=== PATIENT | female | born 1995 | race African-American/Black ===

== ENCOUNTER 2016-11-08 13:48 | Inpatient (IN) ==
[2016-11-08] MEDS ORDERED: BUTORPHANOL 2 MG/ML VIAL IV PRN (14:10)
[2016-11-08] MEDS ORDERED: ONDANSETRON 4 MG/2 ML VIAL IV PRN (14:10)
[2016-11-08] MEDS ORDERED: MEPERIDINE 50 MG/1 ML VIAL IV PRN (14:10)
[2016-11-08] MEDS ORDERED: LACTATED RINGERS 1,000 ML IV ONE (14:13)
[2016-11-08] MEDS ORDERED: hydrOXYzine HCL 25 MG/1 ML VIAL IM PRN (14:13)
[2016-11-08] MEDS ORDERED: ePHEDrine 50 MG/ML AMP IV PRN (14:13)
[2016-11-08] MEDS ORDERED: PROMETHAZINE 25 MG/1 ML VIAL IM ONE (14:13)
[2016-11-08] MEDS ORDERED: FAMOTIDINE 20 MG/2 ML VIAL IV ONE (14:13)
[2016-11-08] MEDS ORDERED: diphenhydrAMINE 50 MG/1 ML VIAL IV PRN ×2 (14:13)
[2016-11-08] MEDS ORDERED: ONDANSETRON 4 MG/2 ML VIAL IV ONE (14:13)
[2016-11-08] MEDS ORDERED: CITRIC ACID/SODIUM CITRATE 30 ML UDCUP PO ONE (14:13)
[2016-11-08] MEDS ORDERED: fentaNYL 2 MCG/ROPIV 0.2% EPID 150 ML EPIDURAL SCH (14:30)
[2016-11-08] MEDS ORDERED: LACTATED RINGERS 1,000 ML IV SCH (14:30)
[2016-11-08 14:52] LABS: Alanine Aminotransferase 24 U/L (13-56); Albumin 2.6 G/DL (3.4-5.0); Alkaline Phosphatase 230 U/L (45-117); Aspartate Amino Transferase 15 U/L (0-37); Bilirubin,Total < 0.39 MG/DL (0.2-1.0); Blood Urea Nitrogen 10 MG/DL (7-18); Calcium 9.1 MG/DL (8.5-10.1); Glucose 123 MG/DL (74-106); Potassium 3.7 MMOL/L (3.5-5.1); Sodium 136 MMOL/L (136-145); Total Protein 7.7 G/DL (6.4-8.3)
[2016-11-08 14:57] LABS: Basophils % 0.2 % (0.0-0.8); Eosinophils % 0.5 % (0.00-10.9); Hematocrit 39.6 VOL% (35.7-47.0); Hemoglobin 13.8 GM/DL (12.0-16.0); Immature Granulocytes % 0.5 %; Immature Granulocytes Absolute 0.04 #; Lymphocytes # 1.9 10*3/uL (1.4-4.0); Lymphocytes % 23.3 % (21.3-54.2); Mean Corpuscular HGB Conc 34.8 GM/DL (32-36); Mean Corpuscular Hemoglobin 30 PG (27-34); Mean Corpuscular Volume 86.5 FL (87-102); Mean Platelet Volume 13.9 FL (9.6-12.0); Monocytes # 0.4 10*3/uL (0.11-0.8); Monocytes % 5.4 % (1.7-12.7); Neutrophils # 5.7 10*3/uL (1.4-7.4); Neutrophils % 70.1 % (38.7-73.9); Platelet Count 246 T/CUMM (130-400); Red Blood Count 4.58 MC/CUMM (3.8-5.5); Red Cell Distribution Width 14.3 % (9.3-17.3); White Blood Count 8.2 T/CUMM (4-12)
[2016-11-08 15:04] LABS: INR 0.9; PT Patient Result 9.7 SECS; Partial Thromboplastin Time 28.7 SECS (0-40)
[2016-11-08] MEDS: OXYTOCIN/LR 20 UNIT/1,000 ML BAG IV SCH (15:14)
[2016-11-08 16:24] LABS: Apearance,Urine Slightly Hazy (Clear); Bacteria,Urine Few /HPF (Few); Bilirubin,Urine Negative (Negative); Blood, Urine Negative (Negative); Glucose,Urine (UA) Negative (Negative); Ketones,Urine Negative (Negative); Mucus,Urine Few /LPF (Occasional); Nitrite,Urine Negative (Negative); Protein,Urine Negative; RBC,Urine 1 /HPF (0-4); Squamous Epithelial Cell,Urine Occasional /HPF (0-10); Urine Color Yellow (Yellow); Urine Specific Gravity 1.012 (1.001-1.035); Urine Urobilinogen < 2.0 EU/DL (0.2-1.0); WBC,Urine 13 /HPF (0-6)
--- NOTE | 2016-11-08 18:58 | OB/GYN History & Physical ---
History of Present Illness Chief complaint: IOL History of present illness: Ms. Soto is a 20 year old female at 36 2/7 wks who was seen for f/u visit with Dr. Alma Rosa SERRANO in [place] today. Growth showed <1%. Per her recommendation admit for IOL. testing initiated secondary to AC lag and possible disorder. Pt also diagnosed with GDM, currently doing a good job with diet control. No other medical or surgical history. R/B/A to IOL reviewed. Pt verbalized understanding and willing to proceed. 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 Regular contractions. Prior to AROM 5-6/90/0. 5 minutes post AROM (clear) 6-7/+1) Assessment and Plan (1) 36 weeks gestation of Status: Acute Current Visit: Yes (2) IUGR (intrauterine growth restriction) affecting care of mother Status: Acute Assessment and plan: IOL Anticipate Per MAGGIE, possible disorder though nothing definitively visualized on u/s Current Visit: Yes Results - Labs CBC & BMP: 11/08/16 14:18 11/08/16 14:18
--- NOTE | 2016-11-08 19:31 | Event Note ---
DELIVERY NOTE of female in ANGELA position after IOL. Pt 5 cm at AROM, delivered ~ 15 minutes later. 4 lbs 7 oz. 8/9 APGARS. Spontaneous intact placenta. EBL 300 cc. Hemostatic left periurethral. NICU present. Mom and baby well.
[2016-11-08] MEDS ORDERED: MAGNESIUM SULF RIDER 100 ML IV ONE (19:57)
[2016-11-08] MEDS ORDERED: MAGNESIUM SULF DRIP 40 GM/1,000 ML ML IV SCH (20:45)
[2016-11-09] MEDS: OXYTOCIN/LR 20 UNIT/1,000 ML BAG IV SCH (01:06)
[2016-11-09] MEDS ORDERED: DIPH/TET/ACEL PERT BOOSTER VACCINE 0.5 ML VIAL IM ONE (01:46)
[2016-11-09] MEDS ORDERED: RHO(D) IMMUNE GLOBULIN 300 MCG SYRINGE IM ONE (01:46)
[2016-11-09] MEDS ORDERED: WITCH HAZEL PADS 100/JAR TOP PRN (01:46)
[2016-11-09] MEDS ORDERED: HYDROCORTISONE 2.5% RECTAL CREAM 30 GM TUBE TOP PRN (01:46)
[2016-11-09] MEDS ORDERED: ACETAMINOPHEN 325 MG TABLET PO PRN (01:46)
[2016-11-09] MEDS ORDERED: IBUPROFEN 800 MG TABLET PO PRN (01:46)
[2016-11-09] MEDS ORDERED: MAGNESIUM SULF DRIP 40 GM/1,000 ML ML IV SCH (01:46)
[2016-11-09] MEDS ORDERED: BISACODYL 10 MG SUPP RECTAL PRN (01:46)
[2016-11-09] MEDS ORDERED: MEASLES/MUMPS/RUBELLA VACCINE 0.5 ML VIAL SUBCUT ONE (01:46)
[2016-11-09] MEDS ORDERED: BENZOCAINE 20%/MENTHOL 0.5% SPRAY 56 GM CAN TOP PRN (01:46)
[2016-11-09] MEDS ORDERED: LANOLIN 50% CREAM 0.3 OZ TUBE TOP PRN (01:46)
[2016-11-09 05:22] LABS: Basophils % 0.2 % (0.0-0.8); Eosinophils % 0.1 % (0.00-10.9); Hematocrit 39.6 VOL% (35.7-47.0); Hemoglobin 14.1 GM/DL (12.0-16.0); Immature Granulocytes % 0.3 %; Immature Granulocytes Absolute 0.04 #; Lymphocytes # 1.8 10*3/uL (1.4-4.0); Lymphocytes % 14.3 % (21.3-54.2); Mean Corpuscular HGB Conc 35.6 GM/DL (32-36); Mean Corpuscular Hemoglobin 30 PG (27-34); Mean Corpuscular Volume 84.8 FL (87-102); Mean Platelet Volume 12.6 FL (9.6-12.0); Monocytes # 1.1 10*3/uL (0.11-0.8); Monocytes % 8.3 % (1.7-12.7); Neutrophils # 9.7 10*3/uL (1.4-7.4); Neutrophils % 76.8 % (38.7-73.9); Platelet Count 226 T/CUMM (130-400); Red Blood Count 4.67 MC/CUMM (3.8-5.5); Red Cell Distribution Width 14.2 % (9.3-17.3); White Blood Count 12.6 T/CUMM (4-12)
[2016-11-09 05:44] LABS: Albumin 2.5 G/DL (3.4-5.0); Bilirubin,Total 0.4 MG/DL (0.2-1.0); Osmolality,Calculated 265.1 MOS/KG (273-304); Potassium 4.1 MMOL/L (3.5-5.1); Total Protein 7.2 G/DL (6.4-8.3); Uric Acid 4.8 MG/DL (2.6-6.0)
--- NOTE | 2016-11-09 08:18 | OB/GYN Progress Note ---
Assessment and Plan (1) 36 weeks gestation of Status: Acute Current Visit: Yes (2) IUGR (intrauterine growth restriction) affecting care of mother Status: Acute Assessment and plan: IOL Anticipate Per MFM, possible disorder though nothing definitively visualized on u/s Current Visit: Yes (3) (normal spontaneous vaginal delivery) Status: Acute Assessment and plan: 1. Doing Ok 2. 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 Absent: tenderness Results - Labs CBC & BMP: 11/09/16 05:15 11/09/16 05:15
[2016-11-09] MEDS: DOCUSATE SODIUM 100 MG CAPSULE PO SCH (22:18)
[2016-11-10 07:47] VITALS: BP 126/84
--- NOTE | 2016-11-10 08:19 | Discharge Summary ---
Hospital Course - Hospital Course Hospital Course: Pt received PP magnesium therapy. Did well. BP still elevated yesterday morning. Pt given a dose of Procardia and BPs have been good. Today she feels good. No complaints Diagnosis - Discharge Diagnosis (1) 36 weeks gestation of Status: Acute (2) IUGR (intrauterine growth restriction) affecting care of mother Status: Acute (3) (normal spontaneous vaginal delivery) Status: Acute Discharge Plan - Discharge Data Disposition: Disch To Home/Self Care Condition at Discharge: Stable Discharge Diet: advance to your usual diet Activity: other (routine pp) Hygiene: may shower Weight Bearing at Discharge: full weight bearing Driving: no restrictions Contact your physician if you experience:: fever over 101, Difficulty voiding, Redness or swelling - Discharge Medications New Docusate Sodium Cap [Colace Cap] 100 mg PO BID #20 capsule Ibuprofen Tab [Motrin Tab] 800 mg PO Q6H PRN #20 tablet PRN Reason: Pain Moderate (4-7) No Action No122/Iron/Folic Acid [ Multi Tablet] 1 tablet PO DAILY - Follow Up or Referral - Forms/Instructions Exam - Constitutional Vitals: Period Temp Pulse Resp BP Sys/Mcginnis Pulse Ox Last 24 Hr 97.1 F-98.4 F 61-108 12-20 101-144/58-90 98-100 General appearance: no acute distress - Head Head exam: Present: normal inspection, normocephalic - Eye Eye exam: Present: EOMI Pupils: Present: KETURAH - GI/Abdominal GI/Abdominal exam: Present: soft. Absent: tenderness Discharge Results Procedures and tests throughout hospitalization: Pending Orders 11/08/16 Urine Culture Routine Labs on day of discharge: Preliminary micro results at discharge 11/08/16 Unknown Urine Culture - Preliminary Urine,Voided No Growth at 24 hours. DS: Provider Date of admission: 11/08/16 14:10 Primary care physician: . No PCP Attending physician on admission: Destiny Lanza MD Consults: 11/09/16 01:46 Consult to Patient Financial Advocate [CONS] Routine Consult Patient Financial Advocate: Breast Feeding Discharging clinician: Destiny Lanza MD
[2016-11-10] MEDS: DOCUSATE SODIUM 100 MG CAPSULE PO SCH (09:45)
--- NOTE | 2016-11-10 13:19 | Pathology Report from [facility] ---
[facility] – [place] ACCESSION # : [id number] PATIENT NAME : Vicky Womack ORDERING DR : Destiny Lanza MD CLINICAL HX: IUP @ 36.2 wks, gestational diabetic, IUGR POST-OP DX: Same SPECIMEN INFO: Placenta GROSS DESCRIPTION: The specimen is received fresh labeled VICKY WOMACK consists of a 314.0 gm placenta measuring 17.0 x 13.0 x 2.0 cm. The membranes are pink-inman and translucent. The umbilical cord measures 19.0 cm, contains three vessels and is eccentrically inserted. The surface is blue-cazares and intact. The maternal surface is intact with multiple pale-yellow plaques noted upon sectioning measuring up to 3.0 to 2.5 cm. Sections submitted : (A) membranes and cord, (B) and maternal surfaces. DIAGNOSIS FOR VICKY WMOACK: PLACENTA, 26.2 WEEKS GESTATIONAL AGE, VAGINAL DELIVERY: Mature placenta, 314 gms trimmed weight. Placental infarct. Very early acute chorioamnionitis. Trivascular umbilical cord, 19 cm in length. COLLECTED DATE: 11/09/2016 [facility] REPORT DATE: 11/10/2016 ELECTRONICALLY SIGNED BY: Ce Carnes M.D. 11/10/2016 - 11:15:28 RANDA
== END 2016-11-10 15:20 | disposition home or self-care (01) | DRG 775 ==
LOC: N.LDOUT 13:48 → N.LD 13:49 → N.OB 11-09 11:09
PROVIDERS: ADMIT Obstetrics & Gynecology; ATTEND Obstetrics & Gynecology